=== PATIENT | female | born 1995 | race Caucasian/White ===

== ENCOUNTER 2017-06-14 08:09 | Emergency (ER) | payer SELFPAY ==
[~2017-06-14] VITALS: Ht 170.2 cm; Wt 92.1 kg
[2017-06-14 10:07] VITALS: BP 122/62
== END 2017-06-14 10:07 | disposition home or self-care (01) ==
LOC: ED 08:09
DX: H66.91 Otitis media, unspecified, right ear (principal)

== ENCOUNTER 2017-11-20 09:11 | Emergency (ER) | payer OTHER ==
[~2017-11-20] VITALS: Ht 170.2 cm; Wt 96.2 kg
[2017-11-20 09:18] VITALS: Ht 170.2 cm; Wt 96.2 kg
[2017-11-20 10:55] VITALS: BP 125/80
== END 2017-11-20 10:55 | disposition home or self-care (01) ==
LOC: ED 09:11
DX: A60.04 Herpesviral vulvovaginitis (principal); N39.0 Urinary tract infection, site not specified
CPT/HCPCS: 87491; 87591

== ENCOUNTER 2017-11-22 16:50 | Emergency (ER) | payer OTHER ==
[~2017-11-22] VITALS: Ht 170.2 cm; Wt 96.2 kg
[2017-11-22 17:04] VITALS: Ht 170.2 cm; Wt 96.2 kg
[2017-11-22 19:00] VITALS: BP 135/81
[2017-11-24 12:34] LABS: RAPID PLASMA REAGIN Non Reactive (Non Reactive)
== END 2017-11-22 19:00 | disposition home or self-care (01) ==
LOC: ED 16:50
PROVIDERS: Emergency Medicine
DX: A74.9 Chlamydial infection, unspecified (principal); A54.9 Gonococcal infection, unspecified; N39.0 Urinary tract infection, site not specified; B00.9 Herpesviral infection, unspecified
CPT/HCPCS: J0696